=== PATIENT | male | born 1985 | race Caucasian/White ===

== ENCOUNTER → 2017-02-13 | Outpatient (CLI) | payer BC ==
--- NOTE | 2017-02-13 14:32 | DIAGNOSTIC IMAGING REPORT ---
C-SPINE ROUTINE 4 OR 5 VIEWS HISTORY: Pain. Neuropathy. R07.89 COMPARISON: None. FINDINGS: The cervical spine is visualized from C1 through the superior endplate of T1. There is no fracture. No subluxation. Disc spaces are preserved. Prevertebral soft tissues and the atlantodens interval are intact. IMPRESSION: No fracture or subluxation within the cervical spine. The above report was generated using voice recognition software. It may contain grammatical, syntax or spelling errors. Electronically signed by: Anselmo De La Cruz M.D. 02/13/2017 2:30 PM Dictated Date/Time: 02/13/2017 2:28 PM
== END | disposition home or self-care (01) ==
LOC: C.RAD1850 14:15
PROVIDERS: ATTEND Family Medicine
DX: R07.89 Other chest pain (principal)